=== PATIENT | female | born 1960 | race African-American/Black ===

== ENCOUNTER 2020-08-02 11:39 | Inpatient (IN) ==
[2020-08-02] MEDS ORDERED: SODIUM CHLORIDE 0.9% 1,000 ML IV STA (12:29)
[2020-08-02 13:12] LABS: Basophils % 0.3 % (0.0-0.8); Hematocrit 38.7 VOL% (35.7-47.0); Hemoglobin 12.5 GM/DL (12.0-16.0); Immature Granulocytes % 0.4 %; Immature Granulocytes Absolute 0.03 #; Lymphocytes # 1.7 10*3/uL (1.4-4.0); Lymphocytes % 24.6 % (21.3-54.2); Mean Corpuscular HGB Conc 32.3 GM/DL (32-36); Mean Corpuscular Volume 89.6 FL (87-102); Mean Platelet Volume 11.2 FL (9.6-12.0); Monocytes % 5.6 % (1.7-12.7); Neutrophils % 69.1 % (38.7-73.9); Platelet Count 182 T/CUMM (130-400); Red Blood Count 4.32 MC/CUMM (3.8-5.5); Red Cell Distribution Width 14.2 % (9.3-17.3); White Blood Count 6.8 T/CUMM (4-12)
[2020-08-02 13:21] LABS: PT Patient Result 10.9 SECS (9.8-11.9)
[2020-08-02 13:41] LABS: Albumin 2.8 G/DL (3.4-5.0); Bilirubin,Total 0.5 MG/DL (0.2-1.0); Calcium 9.2 MG/DL (8.5-10.1); Ferritin 1063.1 ng/ml (8-252); Lymphocytes 23 % (20-55); Osmolality,Calculated 283.5 MOS/KG (273-304); Segmented Neutrophils 71 % (50-85); Total Cells Counted 100; Total Protein 7.7 G/DL (6.4-8.3)
[2020-08-02 13:43] LABS: Hypochromasia 1+; Microcytosis 1+
[2020-08-02 13:44] LABS: Platelet Estimate Adequate
[2020-08-02] MEDS ORDERED: ONDANSETRON 4 MG/2 ML VIAL IV PRN (15:44)
[2020-08-02] MEDS ORDERED: GLUCAGON 1 MG VIAL IM PRN ×2 (15:44)
[2020-08-02] MEDS ORDERED: DEXTROSE 50% 25 GM/50 ML VIAL IV PRN ×2 (15:44)
[2020-08-02] MEDS: DEXAMETHASONE 10 MG/1 ML VIAL IV SCH (17:55)
[2020-08-02] MEDS: INSULIN LISPRO 100 UNIT/ML SUBCUT SCH ×2 (17:59→21:30)
[2020-08-02] MEDS: SODIUM CHLORIDE 0.9% 1,000 ML IV SCH (18:14)
[2020-08-02] MEDS: cefTRIAXone 1,000 MG in SYRINGE 1 EACH IV SCH (18:14)
[2020-08-02] MEDS: AZITHROMYCIN INJ 500 MG in SODIUM CHLORIDE 0.9% 250 ML IV SCH (18:15)
[2020-08-02] MEDS: ENOXAPARIN 40 MG/0.4 ML SYRINGE SUBCUT SCH (18:59)
[2020-08-02] MEDS ORDERED: REMDESIVIR 200 MG in SODIUM CHLORIDE 0.9% 210 ML IV ONE (21:00)
[2020-08-02] MEDS: ACETAMINOPHEN 325 MG TABLET PO PRN (21:27)
[2020-08-03 06:19] LABS: Basophils % 0.2 % (0.0-0.8); Hematocrit 37.8 VOL% (35.7-47.0); Immature Granulocytes % 0.6 %; Immature Granulocytes Absolute 0.04 #; Lymphocytes # 1.6 10*3/uL (1.4-4.0); Mean Corpuscular HGB Conc 31.7 GM/DL (32-36); Mean Corpuscular Volume 91.3 FL (87-102); Mean Platelet Volume 10.9 FL (9.6-12.0); Monocytes % 7.5 % (1.7-12.7); Neutrophils % 66.7 % (38.7-73.9); Platelet Count 198 T/CUMM (130-400); Red Blood Count 4.14 MC/CUMM (3.8-5.5); Red Cell Distribution Width 14.4 % (9.3-17.3); White Blood Count 6.3 T/CUMM (4-12)
[2020-08-03 06:49] LABS: Calcium 8.9 MG/DL (8.5-10.1)
[2020-08-03 06:52] LABS: Ferritin 1194.6 ng/ml (8-252)
[2020-08-03 07:17] LABS: Band Neutrophils 7 % (0-10); Lymphocytes 16 % (20-55); Metamyelocytes 1 %; Platelet Estimate Normal; Segmented Neutrophils 70 % (50-85); Total Cells Counted 100
[2020-08-03 07:18] LABS: Anisocytosis 1+
[2020-08-03 07:19] LABS: Burr Cells Few; Macrocytosis 1+
[2020-08-03] MEDS: FAMOTIDINE 20 MG TABLET PO SCH ×2 (09:46→20:45)
[2020-08-03] MEDS: INSULIN LISPRO 100 UNIT/ML SUBCUT SCH ×4 (09:46→20:46)
[2020-08-03] MEDS: DEXAMETHASONE 10 MG/1 ML VIAL IV SCH (09:46)
[2020-08-03] MEDS: CHOLECALCIFEROL 1,000 UNIT TABLET PO SCH (09:47)
[2020-08-03] MEDS: ZINC GLUCONATE 50 MG TABLET PO SCH (09:47)
[2020-08-03] MEDS: ASCORBIC ACID 500 MG TABLET PO SCH ×2 (09:47→20:46)
[2020-08-03] MEDS: CETIRIZINE 10 MG TABLET PO SCH (09:47)
[2020-08-03] MEDS: PANTOPRAZOLE 40 MG TABLET PO SCH (09:47)
[2020-08-03] MEDS: SODIUM CHLORIDE 0.9% 1,000 ML IV SCH (12:50)
[2020-08-03] MEDS: INSULIN GLARGINE 100 UNIT/ML SUBCUT SCH (14:19)
[2020-08-03] MEDS: REMDESIVIR 100 MG in SODIUM CHLORIDE 0.9% 100 ML IV SCH (15:07)
[2020-08-03] MEDS ORDERED: SODIUM CHLORIDE 0.9% 1,000 ML IV PRN (15:12)
[2020-08-03] MEDS: cefTRIAXone 1,000 MG in SYRINGE 1 EACH IV SCH (16:15)
[2020-08-03] MEDS: AZITHROMYCIN INJ 500 MG in SODIUM CHLORIDE 0.9% 250 ML IV SCH (18:00)
[2020-08-03] MEDS: ENOXAPARIN 40 MG/0.4 ML SYRINGE SUBCUT SCH (18:05)
[2020-08-03] MEDS: SIMVASTATIN 20 MG TABLET PO SCH (20:45)
[2020-08-03] MEDS: MELATONIN 3 MG TABLET PO PRN (20:45)
[2020-08-03] MEDS: ACETAMINOPHEN 325 MG TABLET PO PRN (20:46)
[2020-08-03] MEDS: MONTELUKAST 10 MG TABLET PO SCH (20:46)
[2020-08-04] MEDS: ACETAMINOPHEN 325 MG TABLET PO PRN (03:24)
[2020-08-04 06:01] LABS: Albumin 2.3 G/DL (3.4-5.0); Bilirubin,Total 0.4 MG/DL (0.2-1.0); Calcium 8.8 MG/DL (8.5-10.1); Osmolality,Calculated 293.8 MOS/KG (273-304); Total Protein 6.6 G/DL (6.4-8.3)
[2020-08-04 06:03] LABS: Ferritin 1299.4 ng/ml (8-252)
[2020-08-04] MEDS: ASCORBIC ACID 500 MG TABLET PO SCH ×2 (08:22→22:04)
[2020-08-04] MEDS: INSULIN LISPRO 100 UNIT/ML SUBCUT SCH ×4 (08:22→22:06)
[2020-08-04] MEDS: DEXAMETHASONE 10 MG/1 ML VIAL IV SCH (08:22)
[2020-08-04] MEDS: INSULIN GLARGINE 100 UNIT/ML SUBCUT SCH ×2 (08:22→22:05)
[2020-08-04] MEDS: CHOLECALCIFEROL 1,000 UNIT TABLET PO SCH (08:23)
[2020-08-04] MEDS: CETIRIZINE 10 MG TABLET PO SCH ×2 (08:23→08:49)
[2020-08-04] MEDS: ZINC GLUCONATE 50 MG TABLET PO SCH (08:23)
[2020-08-04] MEDS: FAMOTIDINE 20 MG TABLET PO SCH ×2 (08:23→22:05)
[2020-08-04] MEDS: PANTOPRAZOLE 40 MG TABLET PO SCH (08:23)
[2020-08-04] MEDS ORDERED: FAMOTIDINE 20 MG TABLET PO SCH (09:00)
[2020-08-04] MEDS: REMDESIVIR 100 MG in SODIUM CHLORIDE 0.9% 100 ML IV SCH (10:24)
[2020-08-04] MEDS: NON-FORMULARY MEDICATION (Bictegrav-Emtricit-Tenofov Ala [Biktarvy] 50-200-25 mg Tablet) PO SCH (10:25)
[2020-08-04] MEDS: glyBURIDE 2.5 MG TABLET PO SCH ×2 (14:05→16:22)
[2020-08-04] MEDS: AZITHROMYCIN INJ 500 MG in SODIUM CHLORIDE 0.9% 250 ML IV SCH (16:21)
[2020-08-04] MEDS: cefTRIAXone 1,000 MG in SYRINGE 1 EACH IV SCH (16:21)
[2020-08-04] MEDS: SODIUM CHLORIDE 0.9% 1,000 ML IV SCH ×2 (16:42)
[2020-08-04] MEDS: ENOXAPARIN 40 MG/0.4 ML SYRINGE SUBCUT SCH (17:34)
[2020-08-04] MEDS: MELATONIN 3 MG TABLET PO PRN (22:04)
[2020-08-04] MEDS: SIMVASTATIN 20 MG TABLET PO SCH (22:04)
[2020-08-04] MEDS: MONTELUKAST 10 MG TABLET PO SCH (22:05)
[2020-08-05 05:57] LABS: Basophils % 0.1 % (0.0-0.8); Hematocrit 37.5 VOL% (35.7-47.0); Hemoglobin 11.9 GM/DL (12.0-16.0); Immature Granulocytes % 1.2 %; Immature Granulocytes Absolute 0.12 #; Lymphocytes # 2.4 10*3/uL (1.4-4.0); Lymphocytes % 24.5 % (21.3-54.2); Mean Corpuscular HGB Conc 31.7 GM/DL (32-36); Mean Corpuscular Volume 89.5 FL (87-102); Mean Platelet Volume 10.9 FL (9.6-12.0); Monocytes % 4.4 % (1.7-12.7); NRBC # 0.03 10*3/uL; Neutrophils % 69.8 % (38.7-73.9); Platelet Count 284 T/CUMM (130-400); Red Blood Count 4.19 MC/CUMM (3.8-5.5); Red Cell Distribution Width 14.6 % (9.3-17.3); White Blood Count 9.8 T/CUMM (4-12)
[2020-08-05 06:32] LABS: Band Neutrophils 3 % (0-10); Lymphocytes 16 % (20-55); Metamyelocytes 1 %; Segmented Neutrophils 76 % (50-85); Total Cells Counted 100
[2020-08-05 06:33] LABS: Hypochromasia 1+; Microcytosis 1+; Platelet Estimate Normal
[2020-08-05] MEDS: SODIUM CHLORIDE 0.9% 1,000 ML IV SCH ×2 (06:41→09:25)
[2020-08-05 06:55] LABS: Albumin 2.3 G/DL (3.4-5.0); Bilirubin,Total 0.5 MG/DL (0.2-1.0); Calcium 9.1 MG/DL (8.5-10.1); Osmolality,Calculated 300.8 MOS/KG (273-304); Total Protein 6.5 G/DL (6.4-8.3)
[2020-08-05] MEDS: INSULIN LISPRO 100 UNIT/ML SUBCUT SCH ×4 (08:16→21:13)
[2020-08-05] MEDS: INSULIN GLARGINE 100 UNIT/ML SUBCUT SCH ×2 (08:16→21:14)
[2020-08-05] MEDS: ZINC GLUCONATE 50 MG TABLET PO SCH (08:17)
[2020-08-05] MEDS: DEXAMETHASONE 10 MG/1 ML VIAL IV SCH (08:17)
[2020-08-05] MEDS: CHOLECALCIFEROL 1,000 UNIT TABLET PO SCH (08:18)
[2020-08-05] MEDS: PANTOPRAZOLE 40 MG TABLET PO SCH (08:18)
[2020-08-05] MEDS: glyBURIDE 2.5 MG TABLET PO SCH ×2 (08:18→15:59)
[2020-08-05] MEDS: CETIRIZINE 10 MG TABLET PO SCH ×2 (08:18→09:04)
[2020-08-05] MEDS: ASCORBIC ACID 500 MG TABLET PO SCH ×2 (08:18→21:15)
[2020-08-05] MEDS: FAMOTIDINE 20 MG TABLET PO SCH ×2 (08:18→21:15)
[2020-08-05] MEDS: NON-FORMULARY MEDICATION (Bictegrav-Emtricit-Tenofov Ala [Biktarvy] 50-200-25 mg Tablet) PO SCH (08:19)
[2020-08-05] MEDS ORDERED: ERGOCALCIFEROL 50,000 UNIT CAPSULE PO SCH (09:00)
[2020-08-05] MEDS: REMDESIVIR 100 MG in SODIUM CHLORIDE 0.9% 100 ML IV SCH (09:04)
[2020-08-05] MEDS: cefTRIAXone 1,000 MG in SYRINGE 1 EACH IV SCH (15:58)
[2020-08-05] MEDS: AZITHROMYCIN INJ 500 MG in SODIUM CHLORIDE 0.9% 250 ML IV SCH (15:58)
[2020-08-05] MEDS: ENOXAPARIN 40 MG/0.4 ML SYRINGE SUBCUT SCH (17:20)
[2020-08-05] MEDS: SIMVASTATIN 20 MG TABLET PO SCH (21:15)
[2020-08-05] MEDS: MONTELUKAST 10 MG TABLET PO SCH (21:15)
[2020-08-06] MEDS: SODIUM CHLORIDE 0.9% 1,000 ML IV SCH ×4 (04:02→14:42)
[2020-08-06 05:59] LABS: Ferritin 679.9 ng/ml (8-252)
[2020-08-06] MEDS: INSULIN GLARGINE 100 UNIT/ML SUBCUT SCH ×2 (08:05→20:32)
[2020-08-06] MEDS: DEXAMETHASONE 10 MG/1 ML VIAL IV SCH (08:05)
[2020-08-06] MEDS: INSULIN LISPRO 100 UNIT/ML SUBCUT SCH ×4 (08:05→20:30)
[2020-08-06] MEDS: ASCORBIC ACID 500 MG TABLET PO SCH ×2 (08:06→20:29)
[2020-08-06] MEDS: CHOLECALCIFEROL 1,000 UNIT TABLET PO SCH (08:06)
[2020-08-06] MEDS: PANTOPRAZOLE 40 MG TABLET PO SCH (08:06)
[2020-08-06] MEDS: ZINC GLUCONATE 50 MG TABLET PO SCH (08:07)
[2020-08-06] MEDS: FAMOTIDINE 20 MG TABLET PO SCH ×2 (08:07→20:30)
[2020-08-06] MEDS: NON-FORMULARY MEDICATION (Bictegrav-Emtricit-Tenofov Ala [Biktarvy] 50-200-25 mg Tablet) PO SCH (08:07)
[2020-08-06] MEDS: CETIRIZINE 10 MG TABLET PO SCH ×2 (08:07→08:08)
[2020-08-06] MEDS: glyBURIDE 2.5 MG TABLET PO SCH ×2 (08:07→16:03)
[2020-08-06] MEDS: REMDESIVIR 100 MG in SODIUM CHLORIDE 0.9% 100 ML IV SCH (10:20)
[2020-08-06] MEDS: cefTRIAXone 1,000 MG in SYRINGE 1 EACH IV SCH (16:02)
[2020-08-06] MEDS: AZITHROMYCIN INJ 500 MG in SODIUM CHLORIDE 0.9% 250 ML IV SCH (16:02)
[2020-08-06] MEDS: ENOXAPARIN 40 MG/0.4 ML SYRINGE SUBCUT SCH (17:29)
[2020-08-06] MEDS: SIMVASTATIN 20 MG TABLET PO SCH (20:29)
[2020-08-06] MEDS: MONTELUKAST 10 MG TABLET PO SCH (20:29)
[2020-08-07 06:08] LABS: Calcium 8.3 MG/DL (8.5-10.1); Osmolality,Calculated 284.7 MOS/KG (273-304)
[2020-08-07 06:13] LABS: Ferritin 604.5 ng/ml (8-252)
[2020-08-07] MEDS: SODIUM CHLORIDE 0.9% 1,000 ML IV SCH ×2 (06:46→18:02)
[2020-08-07] MEDS: INSULIN LISPRO 100 UNIT/ML SUBCUT SCH ×4 (08:03→21:28)
[2020-08-07] MEDS: INSULIN GLARGINE 100 UNIT/ML SUBCUT SCH ×2 (08:04→21:29)
[2020-08-07] MEDS ORDERED: POTASSIUM CHLORIDE 20 MEQ TABLET PO ONE (10:07)
[2020-08-07] MEDS: DEXAMETHASONE 10 MG/1 ML VIAL IV SCH (10:19)
[2020-08-07] MEDS: ACETAMINOPHEN 325 MG TABLET PO PRN ×2 (10:20→15:10)
[2020-08-07] MEDS: ZINC GLUCONATE 50 MG TABLET PO SCH (10:20)
[2020-08-07] MEDS: CETIRIZINE 10 MG TABLET PO SCH ×2 (10:20→10:22)
[2020-08-07] MEDS: NON-FORMULARY MEDICATION (Bictegrav-Emtricit-Tenofov Ala [Biktarvy] 50-200-25 mg Tablet) PO SCH (10:20)
[2020-08-07] MEDS: FAMOTIDINE 20 MG TABLET PO SCH ×2 (10:20→21:26)
[2020-08-07] MEDS: PANTOPRAZOLE 40 MG TABLET PO SCH (10:20)
[2020-08-07] MEDS: glyBURIDE 2.5 MG TABLET PO SCH ×2 (10:20→17:07)
[2020-08-07] MEDS: CHOLECALCIFEROL 1,000 UNIT TABLET PO SCH (10:21)
[2020-08-07] MEDS: ASCORBIC ACID 500 MG TABLET PO SCH ×2 (10:21→21:27)
[2020-08-07] MEDS: VANCOMYCIN INJ 1,500 MG in SODIUM CHLORIDE 0.9% 500 ML IV SCH (11:28)
[2020-08-07] MEDS: PIPERACILLIN/TAZOBACTAM 3,375 MG in SODIUM CHLORIDE 0.9% 100 ML IV SCH ×2 (13:50→21:39)
[2020-08-07] MEDS: AZITHROMYCIN INJ 500 MG in SODIUM CHLORIDE 0.9% 250 ML IV SCH (18:08)
[2020-08-07] MEDS: ENOXAPARIN 40 MG/0.4 ML SYRINGE SUBCUT SCH (18:09)
[2020-08-07] MEDS: MONTELUKAST 10 MG TABLET PO SCH (21:25)
[2020-08-07] MEDS: SIMVASTATIN 20 MG TABLET PO SCH (21:26)
[2020-08-08] MEDS: VANCOMYCIN INJ 1,500 MG in SODIUM CHLORIDE 0.9% 500 ML IV SCH ×2 (02:25→14:20)
[2020-08-08 05:20] LABS: Basophils % 0.1 % (0.0-0.8); Eosinophils % 0.5 % (0.00-10.9); Hematocrit 31.8 VOL% (35.7-47.0); Hemoglobin 10.2 GM/DL (12.0-16.0); Immature Granulocytes % 1.7 %; Immature Granulocytes Absolute 0.13 #; Lymphocytes # 1.4 10*3/uL (1.4-4.0); Lymphocytes % 18.3 % (21.3-54.2); Mean Corpuscular HGB Conc 32.1 GM/DL (32-36); Mean Corpuscular Volume 88.3 FL (87-102); Mean Platelet Volume 10.7 FL (9.6-12.0); Monocytes % 8.5 % (1.7-12.7); NRBC # 0.03 10*3/uL; Neutrophils % 70.9 % (38.7-73.9); Platelet Count 176 T/CUMM (130-400); Red Cell Distribution Width 14.4 % (9.3-17.3); White Blood Count 7.4 T/CUMM (4-12)
[2020-08-08] MEDS: PIPERACILLIN/TAZOBACTAM 3,375 MG in SODIUM CHLORIDE 0.9% 100 ML IV SCH ×3 (05:24→22:45)
[2020-08-08] MEDS: SODIUM CHLORIDE 0.9% 1,000 ML IV SCH ×2 (05:27→20:34)
[2020-08-08 05:39] LABS: Calcium 8.4 MG/DL (8.5-10.1)
[2020-08-08] MEDS: NON-FORMULARY MEDICATION (Bictegrav-Emtricit-Tenofov Ala [Biktarvy] 50-200-25 mg Tablet) PO SCH (09:25)
[2020-08-08] MEDS: methylPREDNISolone SOD SUC 40 MG/1 ML VIAL IV SCH ×2 (09:25→20:41)
[2020-08-08] MEDS: CETIRIZINE 10 MG TABLET PO SCH (09:25)
[2020-08-08] MEDS: PANTOPRAZOLE 40 MG TABLET PO SCH (09:25)
[2020-08-08] MEDS: ASCORBIC ACID 500 MG TABLET PO SCH ×2 (09:25→20:36)
[2020-08-08] MEDS: ZINC GLUCONATE 50 MG TABLET PO SCH (09:25)
[2020-08-08] MEDS: INSULIN GLARGINE 100 UNIT/ML SUBCUT SCH ×2 (09:25→20:42)
[2020-08-08] MEDS: FAMOTIDINE 20 MG TABLET PO SCH ×2 (09:25→20:36)
[2020-08-08] MEDS: INSULIN LISPRO 100 UNIT/ML SUBCUT SCH ×4 (09:25→20:41)
[2020-08-08] MEDS: CHOLECALCIFEROL 1,000 UNIT TABLET PO SCH (09:25)
[2020-08-08] MEDS: glyBURIDE 2.5 MG TABLET PO SCH ×2 (09:25→17:08)
[2020-08-08] MEDS ORDERED: FLUCONAZOLE 200 MG TABLET PO ONE (16:54)
[2020-08-08] MEDS: ENOXAPARIN 40 MG/0.4 ML SYRINGE SUBCUT SCH (17:08)
[2020-08-08] MEDS: AZITHROMYCIN INJ 500 MG in SODIUM CHLORIDE 0.9% 250 ML IV SCH (17:08)
[2020-08-08] MEDS: MONTELUKAST 10 MG TABLET PO SCH (20:36)
[2020-08-08] MEDS: SIMVASTATIN 20 MG TABLET PO SCH (20:37)
[2020-08-09] MEDS: VANCOMYCIN INJ 1,500 MG in SODIUM CHLORIDE 0.9% 500 ML IV SCH ×2 (02:43→14:20)
[2020-08-09 04:30] LABS: ABG Base Excess 0.6 MMOL/L (-2.5-2.5); ABG HCO3 24.9 MMOL/L (20-26); ABG Oxygen Saturation 93.9 % (95-100); ABG PCO2 33.2 MM HG (35-48); ABG PH 7.463 (7.35-7.45); ABG PO2 69.2 MM HG (80-95); ABG TCO2 21.1 MMOL/L (23-27); Allen Test Positive
[2020-08-09] MEDS: PIPERACILLIN/TAZOBACTAM 3,375 MG in SODIUM CHLORIDE 0.9% 100 ML IV SCH ×3 (05:48→22:37)
[2020-08-09] MEDS: glyBURIDE 2.5 MG TABLET PO SCH ×2 (09:00→17:00)
[2020-08-09] MEDS: NON-FORMULARY MEDICATION (Bictegrav-Emtricit-Tenofov Ala [Biktarvy] 50-200-25 mg Tablet) PO SCH (09:00)
[2020-08-09] MEDS: INSULIN LISPRO 100 UNIT/ML SUBCUT SCH ×4 (09:00→21:37)
[2020-08-09] MEDS: INSULIN GLARGINE 100 UNIT/ML SUBCUT SCH ×2 (09:01→21:37)
[2020-08-09] MEDS: ASCORBIC ACID 500 MG TABLET PO SCH ×2 (09:01→21:38)
[2020-08-09] MEDS: methylPREDNISolone SOD SUC 40 MG/1 ML VIAL IV SCH ×2 (09:01→21:36)
[2020-08-09] MEDS: CHOLECALCIFEROL 1,000 UNIT TABLET PO SCH (09:02)
[2020-08-09] MEDS: FAMOTIDINE 20 MG TABLET PO SCH ×2 (09:02→21:38)
[2020-08-09] MEDS: CETIRIZINE 10 MG TABLET PO SCH (09:02)
[2020-08-09] MEDS: PANTOPRAZOLE 40 MG TABLET PO SCH (09:02)
[2020-08-09] MEDS: ZINC GLUCONATE 50 MG TABLET PO SCH (09:02)
[2020-08-09] MEDS: SODIUM CHLORIDE 0.9% 1,000 ML IV SCH (11:38)
[2020-08-09] MEDS: ENOXAPARIN 40 MG/0.4 ML SYRINGE SUBCUT SCH (17:00)
[2020-08-09] MEDS: AZITHROMYCIN INJ 500 MG in SODIUM CHLORIDE 0.9% 250 ML IV SCH ×2 (21:30→21:37)
[2020-08-09] MEDS: SIMVASTATIN 20 MG TABLET PO SCH (21:38)
[2020-08-09] MEDS: MONTELUKAST 10 MG TABLET PO SCH (21:38)
[2020-08-09] MEDS: MELATONIN 3 MG TABLET PO PRN (21:39)
[2020-08-10] MEDS: VANCOMYCIN INJ 1,500 MG in SODIUM CHLORIDE 0.9% 500 ML IV SCH (03:05)
[2020-08-10] MEDS: PIPERACILLIN/TAZOBACTAM 3,375 MG in SODIUM CHLORIDE 0.9% 100 ML IV SCH (06:08)
[2020-08-10] MEDS: SODIUM CHLORIDE 0.9% 1,000 ML IV SCH ×2 (07:02→12:35)
[2020-08-10] MEDS: INSULIN GLARGINE 100 UNIT/ML SUBCUT SCH (09:19)
[2020-08-10] MEDS: methylPREDNISolone SOD SUC 40 MG/1 ML VIAL IV SCH (09:19)
[2020-08-10] MEDS: INSULIN LISPRO 100 UNIT/ML SUBCUT SCH ×2 (09:19→12:36)
[2020-08-10] MEDS: FAMOTIDINE 20 MG TABLET PO SCH (09:20)
[2020-08-10] MEDS: glyBURIDE 2.5 MG TABLET PO SCH (09:20)
[2020-08-10] MEDS: PANTOPRAZOLE 40 MG TABLET PO SCH (09:20)
[2020-08-10] MEDS: CHOLECALCIFEROL 1,000 UNIT TABLET PO SCH (09:20)
[2020-08-10] MEDS: ASCORBIC ACID 500 MG TABLET PO SCH (09:20)
[2020-08-10] MEDS: CETIRIZINE 10 MG TABLET PO SCH (09:20)
[2020-08-10] MEDS: NON-FORMULARY MEDICATION (Bictegrav-Emtricit-Tenofov Ala [Biktarvy] 50-200-25 mg Tablet) PO SCH (09:20)
[2020-08-10] MEDS: ZINC GLUCONATE 50 MG TABLET PO SCH (09:20)
[2020-08-10 11:28] VITALS: BP 181/86
[2020-08-11] MEDS ORDERED: LEVOFLOXACIN 750 MG TABLET PO SCH (12:00)
== END 2020-08-10 14:10 | disposition home or self-care (01) | DRG 177 ==
LOC: N.ED 11:39 → N.EDINP 15:44 → SUATTDRO 15:44 → N.2E 18:04
PROVIDERS: ADMIT Internal Medicine; ATTEND Internal Medicine

== ENCOUNTER 2020-10-28 21:01 | Inpatient (IN) ==
[2020-10-28 22:55] LABS: Basophils # 0.1 10*3/uL (0.0-0.2); Basophils % 0.9 % (0.0-0.8); Eosinophils # 0.5 10*3/uL (0.0-0.87); Eosinophils % 6.2 % (0.00-10.9); Hematocrit 37.5 VOL% (35.7-47.0); Hemoglobin 11.8 GM/DL (12.0-16.0); Immature Granulocytes % 0.3 %; Immature Granulocytes Absolute 0.02 #; Lymphocytes # 3.8 10*3/uL (1.4-4.0); Mean Corpuscular HGB Conc 31.5 GM/DL (32-36); Mean Corpuscular Volume 92.6 FL (87-102); Mean Platelet Volume 11.8 FL (9.6-12.0); Monocytes % 9.2 % (1.7-12.7); Neutrophils % 31.4 % (38.7-73.9); Platelet Count 157 T/CUMM (130-400); Red Blood Count 4.05 MC/CUMM (3.8-5.5); Red Cell Distribution Width 14.1 % (9.3-17.3); White Blood Count 7.4 T/CUMM (4-12)
[2020-10-28 23:12] LABS: Alanine Aminotransferase 35 U/L (13-56); Albumin 3.5 G/DL (3.4-5.0); Alkaline Phosphatase 258 U/L (45-117); Aspartate Amino Transferase 28 U/L (0-37); Bilirubin,Total < 0.39 MG/DL (0.2-1.0); Blood Urea Nitrogen 21 MG/DL (7-18); Calcium 9.2 MG/DL (8.5-10.1); Carbon Dioxide 26 MMOL/L (21-32); Estimated Glom Filtration Rate 70 ML/MIN; Glucose 407 MG/DL (74-106); Osmolality,Calculated 292.8 MOS/KG (273-304); Potassium 4.1 MMOL/L (3.5-5.1); Sodium 137 MMOL/L (136-145); Total Protein 7.1 G/DL (5.0-7.5)
[2020-10-28 23:18] LABS: Eosinophils 7 % (0-10); Lymphocytes 50 % (20-55); Segmented Neutrophils 35 % (50-85); Total Cells Counted 100
[2020-10-28] MEDS ORDERED: INSULIN REGULAR 100 UNIT/ML IV STA (23:18)
[2020-10-28 23:20] LABS: Atypical Lymphocytes Few; Hypochromasia Slight; Platelet Estimate Normal
[2020-10-28] MEDS ORDERED: CLINDAMYCIN INJ 600 MG in PREMIX 1 EACH IV STA (23:20)
[2020-10-28] MEDS ORDERED: MORPHINE 4 MG/1 ML VIAL IV PRN (23:48)
[2020-10-29] MEDS ORDERED: guaiFENesin/DM ER 600-30 MG TABLET PO PRN (00:07)
[2020-10-29] MEDS ORDERED: DEXTROSE 50% 25 GM/50 ML VIAL IV PRN ×2 (00:07)
[2020-10-29] MEDS ORDERED: ZALEPLON 5 MG CAPSULE PO PRN (00:07)
[2020-10-29] MEDS ORDERED: GLUCAGON 1 MG VIAL IM PRN ×2 (00:07)
[2020-10-29] MEDS ORDERED: BISACODYL 5 MG TABLET PO PRN (00:07)
[2020-10-29] MEDS ORDERED: diphenhydrAMINE CAP 25 MG CAPSULE PO PRN (00:07)
[2020-10-29] MEDS ORDERED: ONDANSETRON 4 MG/2 ML VIAL IV PRN (00:07)
[2020-10-29] MEDS ORDERED: ACETAMINOPHEN 325 MG TABLET PO PRN (00:07)
[2020-10-29] MEDS ORDERED: NICOTINE 21 MG/24 HR PATCH TRANSDERM PRN (00:07)
[2020-10-29] MEDS ORDERED: hydrALAZINE 20 MG/1 ML VIAL IV PRN (00:07)
[2020-10-29] MEDS ORDERED: INSULIN GLARGINE 100 UNIT/ML SUBCUT ONE (00:17)
[2020-10-29 05:48] LABS: Basophils # 0.1 10*3/uL (0.0-0.2); Basophils % 1.1 % (0.0-0.8); Eosinophils # 0.5 10*3/uL (0.0-0.87); Eosinophils % 6.8 % (0.00-10.9); Hematocrit 36.2 VOL% (35.7-47.0); Hemoglobin 11.2 GM/DL (12.0-16.0); Immature Granulocytes % 0.1 %; Immature Granulocytes Absolute 0.01 #; Lymphocytes # 3.7 10*3/uL (1.4-4.0); Lymphocytes % 50.8 % (21.3-54.2); Mean Corpuscular HGB Conc 30.9 GM/DL (32-36); Mean Platelet Volume 11.9 FL (9.6-12.0); Neutrophils % 32.2 % (38.7-73.9); Platelet Count 147 T/CUMM (130-400); Red Blood Count 3.85 MC/CUMM (3.8-5.5); Red Cell Distribution Width 14.2 % (9.3-17.3); White Blood Count 7.3 T/CUMM (4-12)
[2020-10-29 06:02] LABS: Calcium 8.9 MG/DL (8.5-10.1); Osmolality,Calculated 293.5 MOS/KG (273-304)
[2020-10-29 06:09] LABS: Atypical Lymphocytes Few; Eosinophils 4 % (0-10); Hypochromasia Slight; Lymphocytes 49 % (20-55); Microcytosis Slight; Platelet Estimate Adequate; Segmented Neutrophils 39 % (50-85); Total Cells Counted 100
[2020-10-29] MEDS ORDERED: rOPINIRole 0.25 MG TABLET PO PRN (06:31)
[2020-10-29] MEDS ORDERED: POLYETHYLENE GLYCOL POWDER 255 GM BOTTLE PO PRN (06:31)
[2020-10-29] MEDS ORDERED: POLYETHYLENE GLYCOL POWDER 17 GM PACK PO PRN (06:41)
[2020-10-29] MEDS ORDERED: TELMISARTAN 80 MG PO SCH (09:00)
[2020-10-29] MEDS ORDERED: FUROSEMIDE 20 MG TABLET PO SCH (09:00)
[2020-10-29] MEDS ORDERED: INSULIN GLARGINE 100 UNIT/ML SUBCUT SCH (09:00)
[2020-10-29] MEDS ORDERED: NON-FORMULARY MEDICATION (Naloxegol [Movantik] 25 mg Tablet) PO SCH (09:00)
[2020-10-29] MEDS: ASPIRIN EC 81 MG TABLET PO SCH (09:39)
[2020-10-29] MEDS: LOSARTAN 50 MG TABLET PO SCH (09:39)
[2020-10-29] MEDS: DOCUSATE SODIUM 100 MG CAPSULE PO SCH ×2 (09:39→21:15)
[2020-10-29] MEDS: CETIRIZINE 10 MG TABLET PO SCH (09:39)
[2020-10-29] MEDS: PANTOPRAZOLE 40 MG TABLET PO SCH (09:39)
[2020-10-29] MEDS: ENOXAPARIN 40 MG/0.4 ML SYRINGE SUBCUT SCH (09:40)
[2020-10-29] MEDS: CLINDAMYCIN INJ 600 MG in PREMIX 1 EACH IV SCH ×2 (09:40→16:25)
[2020-10-29] MEDS: INSULIN LISPRO 100 UNIT/ML SUBCUT SCH ×4 (10:15→21:16)
[2020-10-29] MEDS: MONTELUKAST 10 MG TABLET PO SCH (21:15)
[2020-10-29] MEDS: INSULIN GLARGINE 100 UNIT/ML SUBCUT SCH (21:17)
[2020-10-29] MEDS: SIMVASTATIN 20 MG TABLET PO SCH (21:17)
[2020-10-30] MEDS: CLINDAMYCIN INJ 600 MG in PREMIX 1 EACH IV SCH ×3 (00:23→16:06)
[2020-10-30 03:50] LABS: Basophils # 0.1 10*3/uL (0.0-0.2); Basophils % 0.7 % (0.0-0.8); Eosinophils # 0.5 10*3/uL (0.0-0.87); Eosinophils % 6.8 % (0.00-10.9); Hematocrit 37.1 VOL% (35.7-47.0); Hemoglobin 11.6 GM/DL (12.0-16.0); Immature Granulocytes % 0.1 %; Immature Granulocytes Absolute 0.01 #; Lymphocytes # 4.1 10*3/uL (1.4-4.0); Lymphocytes % 55.6 % (21.3-54.2); Mean Corpuscular HGB Conc 31.3 GM/DL (32-36); Mean Corpuscular Volume 93.5 FL (87-102); Mean Platelet Volume 11.9 FL (9.6-12.0); Monocytes % 8.3 % (1.7-12.7); Neutrophils % 28.5 % (38.7-73.9); Platelet Count 149 T/CUMM (130-400); Red Blood Count 3.97 MC/CUMM (3.8-5.5); Red Cell Distribution Width 14.2 % (9.3-17.3); White Blood Count 7.4 T/CUMM (4-12)
[2020-10-30 04:11] LABS: Bilirubin,Total 0.5 MG/DL (0.2-1.0); Calcium 9.2 MG/DL (8.5-10.1); Osmolality,Calculated 291.1 MOS/KG (273-304); Potassium 3.7 MMOL/L (3.5-5.1); Total Protein 6.2 G/DL (5.0-7.5)
[2020-10-30 04:24] LABS: Atypical Lymphocytes Few; Eosinophils 5 % (0-10); Hypochromasia 1+; Lymphocytes 53 % (20-55); Microcytosis Slight; Segmented Neutrophils 39 % (50-85); Total Cells Counted 100
[2020-10-30 04:25] LABS: Platelet Estimate Adequate
[2020-10-30] MEDS ORDERED: LACTATED RINGERS 1,000 ML IV SCH (10:00)
[2020-10-30] MEDS ORDERED: MIDAZOLAM 2 MG/2 ML VIAL ONE (10:06)
[2020-10-30] MEDS ORDERED: LIDOCAINE 2% 5 ML VIAL ONE (10:06)
[2020-10-30] MEDS ORDERED: fentaNYL 100 MCG/2 ML VIAL ONE (10:06)
[2020-10-30] MEDS ORDERED: propofoL 200 MG/20 ML VIAL IV ONE (10:06)
[2020-10-30] MEDS ORDERED: LIDOCAINE 1% 20 ML VIAL ONE (10:09)
[2020-10-30] MEDS ORDERED: ONDANSETRON 4 MG/2 ML VIAL ONE (10:29)
[2020-10-30] MEDS ORDERED: SEVOFLURANE 1 UNIT/15 MINUTE INH ONE (10:29)
[2020-10-30] MEDS ORDERED: PHENYLEPHRINE 1 MG/10 ML SYRINGE IV ONE (10:31)
[2020-10-30] MEDS: INSULIN LISPRO 100 UNIT/ML SUBCUT SCH ×5 (12:36→21:48)
[2020-10-30] MEDS: ASPIRIN EC 81 MG TABLET PO SCH (12:44)
[2020-10-30] MEDS: LOSARTAN 50 MG TABLET PO SCH (12:45)
[2020-10-30] MEDS: CETIRIZINE 10 MG TABLET PO SCH (12:45)
[2020-10-30] MEDS: PANTOPRAZOLE 40 MG TABLET PO SCH (12:45)
[2020-10-30] MEDS: ENOXAPARIN 40 MG/0.4 ML SYRINGE SUBCUT SCH (12:45)
[2020-10-30] MEDS: DOCUSATE SODIUM 100 MG CAPSULE PO SCH ×2 (12:45→21:48)
[2020-10-30] MEDS: SIMVASTATIN 20 MG TABLET PO SCH (21:47)
[2020-10-30] MEDS: MONTELUKAST 10 MG TABLET PO SCH (21:47)
[2020-10-30] MEDS: INSULIN GLARGINE 100 UNIT/ML SUBCUT SCH (21:48)
[2020-10-31] MEDS: CLINDAMYCIN INJ 600 MG in PREMIX 1 EACH IV SCH ×2 (00:40→08:48)
[2020-10-31 05:47] LABS: Basophils % 0.5 % (0.0-0.8); Eosinophils # 0.4 10*3/uL (0.0-0.87); Hemoglobin 11.3 GM/DL (12.0-16.0); Immature Granulocytes % 0.1 %; Immature Granulocytes Absolute 0.01 #; Lymphocytes # 3.9 10*3/uL (1.4-4.0); Lymphocytes % 47.1 % (21.3-54.2); Mean Corpuscular HGB Conc 31.4 GM/DL (32-36); Mean Corpuscular Volume 93.3 FL (87-102); Mean Platelet Volume 11.9 FL (9.6-12.0); Monocytes % 9.3 % (1.7-12.7); Platelet Count 153 T/CUMM (130-400); Red Blood Count 3.86 MC/CUMM (3.8-5.5); Red Cell Distribution Width 14.5 % (9.3-17.3); White Blood Count 8.2 T/CUMM (4-12)
[2020-10-31 06:12] LABS: Eosinophils 4 % (0-10); Lymphocytes 51 % (20-55); Platelet Estimate Adequate; Segmented Neutrophils 39 % (50-85); Total Cells Counted 100
[2020-10-31 06:13] LABS: Atypical Lymphocytes Few; Hypochromasia 1+; Microcytosis 1+
[2020-10-31 06:32] LABS: Albumin 2.9 G/DL (3.4-5.0); Bilirubin,Total 0.6 MG/DL (0.2-1.0); Calcium 9.3 MG/DL (8.5-10.1); Osmolality,Calculated 286.5 MOS/KG (273-304); Total Protein 6.2 G/DL (6.4-8.2)
[2020-10-31] MEDS: INSULIN LISPRO 100 UNIT/ML SUBCUT SCH ×2 (08:48→12:28)
[2020-10-31] MEDS: DOCUSATE SODIUM 100 MG CAPSULE PO SCH (08:48)
[2020-10-31] MEDS: PANTOPRAZOLE 40 MG TABLET PO SCH (08:48)
[2020-10-31] MEDS: CETIRIZINE 10 MG TABLET PO SCH (08:48)
[2020-10-31] MEDS: ENOXAPARIN 40 MG/0.4 ML SYRINGE SUBCUT SCH (08:48)
[2020-10-31] MEDS: ASPIRIN EC 81 MG TABLET PO SCH (08:48)
[2020-10-31] MEDS: LOSARTAN 50 MG TABLET PO SCH (08:48)
[2020-10-31 12:58] VITALS: BP 132/68
== END 2020-10-31 12:45 | disposition home or self-care (01) | DRG 617 ==
LOC: N.ED 21:01 → N.EDINP 21:01 → N.5E 10-29 00:33 → SUATTDRO 10-30 15:04
PROVIDERS: ADMIT Internal Medicine; ATTEND Internal Medicine

== ENCOUNTER 2021-06-30 16:55 | Observation (INO) ==
[2021-06-30] MEDS ORDERED: SODIUM CHLORIDE 0.9% 1,000 ML IV STA (18:22)
[2021-06-30] MEDS ORDERED: ONDANSETRON 4 MG/2 ML VIAL IV STA (18:22)
[2021-06-30 18:49] LABS: Basophils # 0.1 10*3/uL (0.0-0.2); Basophils % 0.6 % (0.0-0.8); Eosinophils # 0.1 10*3/uL (0.0-0.87); Eosinophils % 1.5 % (0.00-10.9); Hematocrit 40.2 VOL% (35.7-47.0); Hemoglobin 12.7 GM/DL (12.0-16.0); Immature Granulocytes % 0.3 %; Immature Granulocytes Absolute 0.02 #; Lymphocytes % 50.4 % (21.3-54.2); Mean Corpuscular HGB Conc 31.6 GM/DL (32-36); Mean Corpuscular Volume 91.4 FL (87-102); Mean Platelet Volume 11.4 FL (9.6-12.0); Monocytes % 8.7 % (1.7-12.7); Neutrophils % 38.5 % (38.7-73.9); Platelet Count 240 T/CUMM (130-400); Red Cell Distribution Width 14.7 % (9.3-17.3)
[2021-06-30 18:56] LABS: Bacteria,Urine Occasional /HPF (Few); Bilirubin,Urine Negative (Negative); Blood, Urine Negative (Negative); Glucose,Urine (UA) >=500 mg/dL (Negative); Ketones,Urine Negative (Negative); Mucus,Urine Occasional /LPF (Occasional); Nitrite,Urine Negative (Negative); Protein,Urine Negative; RBC,Urine 2 /HPF (0-4); Squamous Epithelial Cell,Urine Occasional /HPF (0-10); Urine Appearance CLEAR (Clear); Urine Color Yellow (Yellow); Urine Specific Gravity 1.024 (1.001-1.035); Urine Urobilinogen < 2.0 EU/DL (0.2-1.0)
[2021-06-30 19:09] LABS: Alanine Aminotransferase 47 U/L (13-56); Albumin 3.8 G/DL (3.4-5.0); Alkaline Phosphatase 156 U/L (45-117); Aspartate Amino Transferase 28 U/L (0-37); Bilirubin,Total < 0.39 MG/DL (0.20-1.00); Blood Urea Nitrogen 52 MG/DL (7-18); Calcium 8.6 MG/DL (8.5-10.1); Carbon Dioxide 20 MMOL/L (21-32); Estimated Glom Filtration Rate 36 ML/MIN; Glucose 418 MG/DL (74-106); Osmolality,Calculated 301.1 MOS/KG (273-304); Potassium 4.5 MMOL/L (3.5-5.1); Sodium 135 MMOL/L (136-145); Total Protein 7.7 G/DL (6.4-8.2)
[2021-06-30] MEDS ORDERED: ACETAMINOPHEN 325 MG TABLET PO PRN (19:53)
[2021-06-30] MEDS ORDERED: GLUCAGON 1 MG VIAL IM PRN (19:53)
[2021-06-30] MEDS ORDERED: ONDANSETRON 4 MG/2 ML VIAL IV PRN (19:53)
[2021-06-30] MEDS ORDERED: DEXTROSE 50% 25 GM/50 ML SYRINGE IV PRN (20:03)
[2021-06-30] MEDS: ENOXAPARIN 40 MG/0.4 ML SYRINGE SUBCUT SCH (21:37)
[2021-06-30] MEDS: INSULIN LISPRO 100 UNIT/ML SUBCUT SCH (21:42)
[2021-06-30] MEDS: LACTATED RINGERS 1,000 ML IV SCH (23:59)
[2021-07-01] MEDS ORDERED: INFLUENZA VIRUS VACCINE 0.5 ML SYRINGE IM ONE (00:11)
[2021-07-01] MEDS: LACTATED RINGERS 1,000 ML IV SCH ×3 (04:00→23:10)
[2021-07-01 05:07] LABS: Basophils % 0.5 % (0.0-0.8); Eosinophils # 0.1 10*3/uL (0.0-0.87); Eosinophils % 1.8 % (0.00-10.9); Hematocrit 36.6 VOL% (35.7-47.0); Hemoglobin 11.5 GM/DL (12.0-16.0); Immature Granulocytes % 0.3 %; Immature Granulocytes Absolute 0.02 #; Lymphocytes # 3.7 10*3/uL (1.4-4.0); Lymphocytes % 50.2 % (21.3-54.2); Mean Corpuscular HGB Conc 31.4 GM/DL (32-36); Mean Corpuscular Volume 91.3 FL (87-102); Mean Platelet Volume 11.1 FL (9.6-12.0); Neutrophils % 38.2 % (38.7-73.9); Platelet Count 198 T/CUMM (130-400); Red Blood Count 4.01 MC/CUMM (3.8-5.5); Red Cell Distribution Width 14.8 % (9.3-17.3); White Blood Count 7.4 T/CUMM (4-12)
[2021-07-01 05:31] LABS: Calcium 8.6 MG/DL (8.5-10.1); Osmolality,Calculated 295.7 MOS/KG (273-304)
[2021-07-01 05:57] LABS: Anisocytosis 1+; Atypical Lymphocytes 1+; Eosinophils 1 % (0-10); Lymphocytes 55 % (20-55); Platelet Estimate Normal; Segmented Neutrophils 37 % (50-85); Smudge Cells 1+; Total Cells Counted 100
[2021-07-01 05:58] LABS: Burr Cells Few; Misc Morphology 5S
[2021-07-01] MEDS: INSULIN LISPRO 100 UNIT/ML SUBCUT SCH ×4 (08:45→20:40)
[2021-07-01] MEDS: PANTOPRAZOLE 40 MG TABLET PO SCH (08:45)
[2021-07-01] MEDS: CHOLECALCIFEROL 1,000 UNIT TABLET PO SCH (13:01)
[2021-07-01] MEDS: ASCORBIC ACID 500 MG TABLET PO SCH (13:01)
[2021-07-01] MEDS: CETIRIZINE 10 MG TABLET PO SCH (13:01)
[2021-07-01] MEDS: ASPIRIN EC 81 MG TABLET PO SCH (13:01)
[2021-07-01] MEDS: FLUTICASONE 50 MCG NASAL SPRAY 16 GM BOTTLE BOTH NARES SCH (13:02)
[2021-07-01] MEDS: INSULIN GLARGINE 100 UNIT/ML SUBCUT SCH ×2 (13:03→20:38)
[2021-07-01] MEDS: ENOXAPARIN 40 MG/0.4 ML SYRINGE SUBCUT SCH (20:37)
[2021-07-01] MEDS ORDERED: MONTELUKAST 10 MG TABLET PO SCH (21:00)
[2021-07-02 05:56] LABS: Basophils # 0.1 10*3/uL (0.0-0.2); Eosinophils # 0.1 10*3/uL (0.0-0.87); Eosinophils % 2.3 % (0.00-10.9); Hematocrit 33.5 VOL% (35.7-47.0); Hemoglobin 10.5 GM/DL (12.0-16.0); Immature Granulocytes % 0.2 %; Immature Granulocytes Absolute 0.01 #; Lymphocytes # 3.9 10*3/uL (1.4-4.0); Lymphocytes % 63.9 % (21.3-54.2); Mean Corpuscular HGB Conc 31.3 GM/DL (32-36); Mean Corpuscular Volume 90.8 FL (87-102); Mean Platelet Volume 10.6 FL (9.6-12.0); Monocytes % 7.9 % (1.7-12.7); Neutrophils % 24.7 % (38.7-73.9); Platelet Count 184 T/CUMM (130-400); Red Blood Count 3.69 MC/CUMM (3.8-5.5); Red Cell Distribution Width 14.9 % (9.3-17.3); White Blood Count 6.1 T/CUMM (4-12)
[2021-07-02 06:11] LABS: Calcium 8.5 MG/DL (8.5-10.1); Osmolality,Calculated 290.7 MOS/KG (273-304); Potassium 3.5 MMOL/L (3.5-5.1)
[2021-07-02 06:25] LABS: Atypical Lymphocytes Few; Eosinophils 1 % (0-10); Hypochromasia 1+; Lymphocytes 66 % (20-55); Segmented Neutrophils 24 % (50-85); Total Cells Counted 100
[2021-07-02 06:26] LABS: Microcytosis 1+; Platelet Estimate Adequate
[2021-07-02] MEDS: LACTATED RINGERS 1,000 ML IV SCH ×2 (06:35→12:11)
[2021-07-02] MEDS: INSULIN LISPRO 100 UNIT/ML SUBCUT SCH ×2 (08:29→12:01)
[2021-07-02] MEDS: PANTOPRAZOLE 40 MG TABLET PO SCH (09:17)
[2021-07-02] MEDS: ASPIRIN EC 81 MG TABLET PO SCH (09:17)
[2021-07-02] MEDS: CHOLECALCIFEROL 1,000 UNIT TABLET PO SCH (09:17)
[2021-07-02] MEDS: CETIRIZINE 10 MG TABLET PO SCH (09:17)
[2021-07-02] MEDS: FLUTICASONE 50 MCG NASAL SPRAY 16 GM BOTTLE BOTH NARES SCH (09:18)
[2021-07-02] MEDS: INSULIN GLARGINE 100 UNIT/ML SUBCUT SCH (09:18)
[2021-07-02] MEDS: ASCORBIC ACID 500 MG TABLET PO SCH (09:21)
[2021-07-02 11:47] VITALS: BP 121/67
[2021-07-08] MEDS ORDERED: DULAGLUTIDE 1.5 MG/0.5 ML SUBCUT SCH (09:00)
== END 2021-07-02 12:09 | disposition home or self-care (01) ==
LOC: N.EDINP 16:55 → N.ED 16:55 → SUATTDRO 19:53 → N.5E 23:36
PROVIDERS: ADMIT Phlebology; ATTEND Internal Medicine